=== PATIENT | male | born 1960 | race Hispanic/Latino ===

== ENCOUNTER 2017-09-09 13:48 | Emergency (ER) | payer SELFPAY ==
[2017-09-09] MEDS ORDERED: KEPPRA 1,000 MG/NS 0.75% 100ML 1,000 MG/100 ML BAG IV ONE (14:19)
--- NOTE | 2017-09-09 14:26 | Emergency Department Report ---
HPI - General Chief Complaint: Syncope Time Seen by Provider: 09/09/17 14:08 - HPI HPI: Room 9 The patient is a 57-year-old male presenting with chief complaint of seizure. The patient states he was at [employer] with his brother when he felt hot. Patient states he was told he fell down and had a seizure. The patient reports one year ago being told he had a seizure while in the car with his employer. The employer drove him to the fire department where he was evaluated for the patient states he never went to the hospital for further evaluation. Location: [facility] Duration: Unknown Quality: Generalized tonic-clonic Severity: Moderate Modifying factors: [see above] Context: [see above] Mode of transportation: [not driving] ED Past Medical Hx - Past Medical History Previous Medical History?: No Additional medical history: pt denies PMH - Surgical History Additional Surgical History: collar bone, right foot tendon surgery - Family History Family history: no significant - Social History Smoking Status: Never Smoker Substance Use Type: None (denies illicit drug use), Alcohol (occasional) - Medications Home Medications: Home Medications Medication Instructions Recorded Confirmed Last Taken Type levETIRAcetam [Keppra TAB] 500 mg PO BID #60 tablet 09/09/17 Unknown Rx ED Review of Systems ROS: Stated complaint: SEIZURE Other details as noted in HPI Constitutional: other (felt hot) Neurological: other (seizure) Physical Exam - Physical Exam Vital Signs: Vital Signs 09/09/17 14:01 Temperature 98.4 F Pulse Rate 74 Respiratory 14 Rate Blood Pressure 148/72 O2 Sat by Pulse 97 Oximetry Physical Exam: GENERAL: The patient is well-developed well-nourished male sitting on stretcher not appear to be in acute distress. [] HEENT: Normocephalic. Atraumatic. Extraocular motions are intact. Patient has moist mucous membranes. NECK: Supple. No meningitic signs are noted. There is no adenopathy noted. CHEST/LUNGS: Clear to auscultation. There is no respiratory distress noted. HEART/CARDIOVASCULAR: Regular. There is no tachycardia. There is no gallop rub or murmur. ABDOMEN: Abdomen is soft, nontender. Patient has normal bowel sounds. There is no abdominal distention. SKIN: There is no rash. There is no edema. There is no diaphoresis. NEURO: The patient is awake, alert, and oriented. The patient is cooperative. The patient has no focal neurologic deficits. The patient has normal speech. Cranial nerves II through XII grossly intact, no drift MUSCULOSKELETAL: There is no evidence of acute injury. ED Course Vital Signs 09/09/17 14:01 Temperature 98.4 F Pulse Rate 74 Respiratory 14 Rate Blood Pressure 148/72 O2 Sat by Pulse 97 Oximetry ED Medical Decision Making - Lab Data Result diagrams: 09/09/17 14:35 09/09/17 14:29 Laboratory Tests 09/09/17 09/09/17 09/09/17 14:29 14:35 14:35 WBC 6.3 RBC 4.02 Hgb 14.5 Hct 42.6 MCV 106 H MCH 36 H MCHC 34 RDW 11.8 L Plt Count 171 Lymph % (Auto) 14.2 Nye % (Auto) 5.1 Eos % (Auto) 0.9 Baso % (Auto) 0.7 Lymph # 0.9 L Nye # 0.3 Eos # 0.1 Baso # 0.0 Seg Neutrophils % 79.1 H Seg Neutrophils # 5.0 PT 12.5 INR 0.89 APTT 22.4 L Sodium 136 L Potassium 4.0 Chloride 98.2 Carbon Dioxide 24 Anion Gap 18 BUN 7 L Creatinine 0.5 L Estimated GFR > 60 BUN/Creatinine Ratio 14 Glucose 148 H Calcium 9.2 Magnesium 2.00 Total Creatine Kinase 102 CK-MB (CK-2) 2.3 CK-MB (CK-2) Rel Index 2.2 Troponin T < 0.010 - EKG Data -: EKG Interpreted by [place] EKG shows normal: sinus rhythm Rate: normal - EKG Data When compared to previous EKG there are: previous EKG unavailable Interpretation: other (no ischemic changes appreciated) - Radiology Data Radiology results: report reviewed (CT head), image reviewed (CT head) FINAL REPORT PROCEDURE: CT HEAD/BRAIN WO CON TECHNIQUE: Computerized tomography of the head was performed without contrast material. HISTORY: seizure COMPARISON: No prior studies are available for comparison. FINDINGS: Brain: Brain density appears normal. No evidence of intracranial hemorrhage. No parenchymal hemorrhage, mass lesions or mass effect are seen. No abnormal extraxial fluid collects or masses are seen. Ventricles: Ventricles are normal size and are midline. Bone Windows: No evidence of skull fracture. Paranasal sinuses: There is moderate mucosal thickening medial aspect right frontal sinus. There is patchy mucosal disease in several of the ethmoid air cells bilaterally. There is mild mucosal thickening posteriorly in the sphenoid sinuses. There is a nodular density partially visualized posteriorly in the right maxillary sinus measuring 1 centimeters suggesting a polyp or mucous retention cyst. The entire maxillary sinuses are not included on this exam. Mastoid air cells: Clear IMPRESSION: Negative unenhanced CT scan of the brain. Paranasal sinus disease as described. Mucosal thickening visualized consistent with sinusitis. There are no air-fluid levels that would suggest acute sinusitis. If clinically indicated MRI of the brain could be obtained to evaluate for possible seizure focus. Transcribed By: NICOLE Dictated By: HELGA MONREAL MD Electronically Authenticated By: HELGA MONREAL MD Signed Date/Time: 09/09/171135 DD/ 35 TD/TT: 09/09/171135 - Medical Decision Making I discussed with the patient that he should not drive or operate heavy machinery until he is cleared by a neurologist. Patient verbalized understanding - Differential Diagnosis seizures, electrolyte imbalance, intracranial mass, intracranial hemorrhage Critical care attestation.: If time is entered above; I have spent that time in minutes in the direct care of this critically ill patient, excluding procedure time. ED Disposition Clinical Impression: Seizure Disposition: [id number] TO HOME OR SELFCARE Is pt being admited?: No Does the pt Need Aspirin: No Condition: Stable Instructions: Epilepsy (ED), Recurrent Seizures Adult (ED) Additional Instructions: You should not drive, operate heavy machinery or be around large bodies of water unattended until you are cleared by a neurologist. Return to the emergency department immediately should you develop worsening symptoms, fever, inability to tolerate food or liquid or any other concerns. Prescriptions: levETIRAcetam [Keppra TAB] 500 mg PO BID #60 tablet Referrals: SWETHA ROJAS MD [Staff Physician] - [facility] (Dr. Rojas is a neurologist. Please follow-up with him for further evaluation. You should not drive or operate heavy machinery until you are cleared by a neurologist) Time of Disposition: 15:54
[2017-09-09 14:49] LABS: Basophils % (Auto) 0.7 % (0.0-1.8); Eosinophils # (Auto) 0.1 K/mm3 (0.0-0.4); Eosinophils % (Auto) 0.9 % (0.0-4.3); Hematocrit 42.6 % (35.5-45.6); Hemoglobin 14.5 gm/dl (11.8-15.2); Lymphocytes # (Auto) 0.9 K/mm3 (1.2-5.4); Lymphocytes % (Auto) 14.2 % (13.4-35.0); Mean Corpuscular HGB Conc 34 % (32-34); Mean Corpuscular Hemoglobin 36 pg (28-32); Mean Corpuscular Volume 106 fl (84-94); Monocytes # (Auto) 0.3 K/mm3 (0.0-0.8); Monocytes % (Auto) 5.1 % (0.0-7.3); Platelet Count 171 K/mm3 (140-440); Red Blood Count 4.02 M/mm3 (3.65-5.03); Red Cell Distribution Width 11.8 % (13.2-15.2)
[2017-09-09 15:04] LABS: INR 0.89 (0.87-1.13)
[2017-09-09 15:05] LABS: Partial Thromboplastin Time 22.4 Sec. (24.2-36.6)
[2017-09-09 15:13] LABS: Creatine Kinase MB 2.3 ng/mL (0.0-4.0)
[2017-09-09 15:14] LABS: BUN/Creatinine Ratio 14; Blood Urea Nitrogen 7 mg/dL (9-20); Calcium 9.2 mg/dL (8.4-10.2); Hemolysis Index 5
--- NOTE | 2017-09-09 15:41 | Cat Scan Report ---
FINAL REPORT PROCEDURE: CT HEAD/BRAIN WO CON TECHNIQUE: Computerized tomography of the head was performed without contrast material. HISTORY: seizure COMPARISON: No prior studies are available for comparison. FINDINGS: Brain: Brain density appears normal. No evidence of intracranial hemorrhage. No parenchymal hemorrhage, mass lesions or mass effect are seen. No abnormal extraxial fluid collects or masses are seen. Ventricles: Ventricles are normal size and are midline. Bone Windows: No evidence of skull fracture. Paranasal sinuses: There is moderate mucosal thickening medial aspect right frontal sinus. There is patchy mucosal disease in several of the ethmoid air cells bilaterally. There is mild mucosal thickening posteriorly in the sphenoid sinuses. There is a nodular density partially visualized posteriorly in the right maxillary sinus measuring 1 centimeters suggesting a polyp or mucous retention cyst. The entire maxillary sinuses are not included on this exam. Mastoid air cells: Clear IMPRESSION: Negative unenhanced CT scan of the brain. Paranasal sinus disease as described. Mucosal thickening visualized consistent with sinusitis. There are no air-fluid levels that would suggest acute sinusitis. If clinically indicated MRI of the brain could be obtained to evaluate for possible seizure focus.
[2017-09-09] MEDS ORDERED: TORADOL IV ONE (15:53)
[2017-09-09 16:25] VITALS: BP 154/92
== END 2017-09-09 16:25 | disposition home or self-care (01) ==
LOC: ED 13:48
DX: R56.9 Unspecified convulsions (principal)
CPT/HCPCS: 36415; 70450; 80048; 82550; 82553; 83735; 84484; 85025; 85610; 85730; 93005; 93010; 96374; 96375; 99284; J1953